=== PATIENT | male | born 1955 | race American Indian/Alaskan Native ===

== ENCOUNTER 2016-06-22 18:08 | Inpatient (IN) | payer OTHER ==
--- NOTE | 2016-06-22 18:43 | Emergency Department Report ---
Chief Complaint: Dyspnea/Respdistress Stated Complaint: DIABETIC/WEAKNESS Time Seen by Provider: 06/22/16 18:38 - HPI History of Present Illness: 60-year-old male comes in for shortness of breath weakness nausea decreased appetite. 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 Patient reports that he is has not taken off his medications such as his insulin. He says his insulin is outdated. He does have his Keppra and his metformin with him. He has not been taking his xarelto. - Exam Vital Signs: Vital Signs 06/22/16 18:22 Temperature 97.7 F Pulse Rate 147 H Respiratory 22 Rate Blood Pressure 132/95 O2 Sat by Pulse 97 Oximetry Physical Exam: Patient's alert talkative full sentences. He is very cachectic muscle wasting temporal wasting smells of ketones. Cardiovascular tachycardic. Respiratory not able to appreciate. MSE screening note: Focused history and physical exam performed. Due to findings the following was ordered: Patient's been evaluated. We ordered hyperglycemic protocol as well as a lactic acid PTT PT. informed Dr. Jensen and Angel the charge nurse patient's condition. ED Disposition for MSE Condition: Stable
[2016-06-22] MEDS ORDERED: NACL 0.9% 1000 ML IV ONE (19:00)
[2016-06-22 19:33] LABS: Bilirubin,Urine NEG (Negative); Blood,Urine NEG (Negative); Ketones,Urine 80 mg/dL (Negative); Leukocyte Esterase,Urine NEG (Negative); Nitrite,Urine NEG (Negative); Protein,Urine <15 mg/dL mg/dL (Negative); Urobilinogen,Urine < 2.0 mg/dL (<2.0); WBC,Urine < 1.0 /HPF (0.0-6.0)
[2016-06-22 19:34] LABS: Basophils % (Auto) 0.3 % (0.0-1.8); Eosinophils % (Auto) 0.5 % (0.0-4.3); Hematocrit 44.8 % (35.5-45.6); Hemoglobin 14.7 gm/dl (11.8-15.2); Mean Corpuscular HGB Conc 33 % (32-34); Mean Corpuscular Hemoglobin 28 pg (28-32); Mean Corpuscular Volume 85 fl (84-94); Platelet Count 289 K/mm3 (140-440); Red Cell Distribution Width 12.7 % (13.2-15.2); White Blood Count 5.5 K/mm3 (4.5-11.0)
[2016-06-22 19:49] LABS: INR 1.03 (0.87-1.13)
[2016-06-22 19:50] LABS: Partial Thromboplastin Time 24.6 Sec. (24.2-36.6)
[2016-06-22 19:57] LABS: Anion Gap 34 mmol/L; Blood Urea Nitrogen 19 mg/dL (9-20); Calcium 9.8 mg/dL (8.4-10.2); Carbon Dioxide 14 mmol/L (22-30); Glucose 444 mg/dL (75-100); Potassium 5.5 mmol/L (3.6-5.0); Sodium 134 mmol/L (137-145)
[2016-06-22 20:00] LABS: B-Hydroxybutyrate 81.5 mg/dL (0.2-2.8)
--- NOTE | 2016-06-22 20:07 | Emergency Department Report ---
HPI - General Chief Complaint: Dyspnea/Respdistress Time Seen by Provider: 06/22/16 18:38 - HPI HPI: This is a 60-year-old Afro-[place] male who presents to the emergency department by EMS from home with the complaints of a 3 day history of shortness of breath, palpitations, decreased appetite, increased thirst and increased urination. He has had some general weakness the past 3 weeks. Patient has a history of insulin and pill dependent diabetes and says he has been compliant with his medication. He also says that he has a mass on his brain that he is unsure whether it is cancerous or not. He has a history of seizures and previous stroke as well as hypertension. Patient says that he is usually on Xarelto but has been out of it for the past 2-3 months. He does not have a primary care doctor. He is an occasional tobacco smoker. Denies any illicit drug use. No recent travel or sick contacts at home. ED Past Medical Hx - Medications Home Medications: Home Medications Medication Instructions Recorded Confirmed Last Taken Type Insulin Aspart [NovoLOG Flexpen] 8 units SQ TID 06/22/16 06/22/16 1 Day Ago History Insulin Detemir [Levemir VIAL] 16 unit SQ QHS 06/22/16 06/22/16 1 Day Ago History Metformin HCl [Metformin HCl ER] 2 tab PO BID 06/22/16 06/22/16 1 Day Ago History Rivaroxaban [Xarelto] 20 mg PO QDAY 06/22/16 06/22/16 2 Months Ago History levETIRAcetam [Keppra TAB] 250 mg PO TID 06/22/16 06/22/16 1 Day Ago History ED Review of Systems ROS: Stated complaint: DIABETIC/WEAKNESS Other details as noted in HPI Comment: All other systems reviewed and negative Constitutional: weakness. denies: fever Eyes: denies: eye pain, eye discharge, vision change ENT: denies: ear pain, throat pain Respiratory: shortness of breath. denies: cough Cardiovascular: palpitations. denies: chest pain Gastrointestinal: denies: abdominal pain, nausea, diarrhea Genitourinary: denies: urgency, dysuria Musculoskeletal: denies: back pain, joint swelling, arthralgia Skin: denies: rash, lesions Neurological: weakness. denies: headache, numbness, paresthesias Physical Exam - Physical Exam Vital Signs: Vital Signs 06/22/16 06/22/16 18:22 19:04 Temperature 97.7 F Pulse Rate 147 H 127 H Respiratory 22 22 Rate Blood Pressure 132/95 Blood Pressure 169/99 [Left] O2 Sat by Pulse 97 99 Oximetry Physical Exam: GENERAL: The patient is well-developed well-nourished. HEENT: Normocephalic. Atraumatic. Extraocular motions are intact. Patient has moist mucous membranes. Pupils equal reactive to light bilaterally. NECK: Supple. Trachea is midline. CHEST/LUNGS: Clear to auscultation. There is no respiratory distress noted. HEART/CARDIOVASCULAR: Regular. There is mild to moderate tachycardia. There is no gallop rub or murmur. ABDOMEN: Abdomen is soft, nontender. Patient has normal bowel sounds. There is no abdominal distention. SKIN: There is no rash. There is no edema. There is no diaphoresis. NEURO: The patient is awake, alert, and oriented. The patient is cooperative. The patient has no focal neurologic deficits. The patient has normal speech. MUSCULOSKELETAL: There is no tenderness or deformity. There is no limitation range of motion. There is no evidence of acute injury. ED Course Vital Signs 06/22/16 06/22/16 18:22 19:04 Temperature 97.7 F Pulse Rate 147 H 127 H Respiratory 22 22 Rate Blood Pressure 132/95 Blood Pressure 169/99 [Left] O2 Sat by Pulse 97 99 Oximetry ED Medical Decision Making - Lab Data Result diagrams: 06/22/16 19:22 06/22/16 19:22 - EKG Data -: EKG Interpreted by Mi EKG shows normal: sinus rhythm, axis, intervals (prolong QTC), QRS complexes ( LVH), ST-T waves (nonspecific ST-T changes) Rate: tachycardia (139 bpm) - EKG Data When compared to previous EKG there are: previous EKG unavailable Interpretation: other (sinus tachycardia, prolonged QTC, nonspecific ST-T changes) - Radiology Data Radiology results: image reviewed interpreted by me: Chest x-ray shows hyperinflation of lungs and some signs of interstitial lung disease but no obvious pneumonia, pleural effusion or any pneumothorax. - Medical Decision Making 60-year-old male presents to the emergency department with some complaints of shortness of breath, increased thirst, increased urination and known uncontrolled diabetes. Patient's blood sugar was about 400 but he still appears to be in DKA with a venous pH that shows acidosis, 80 ketones in the serum, and elevated anion gap. Started on insulin drip and given IV fluid resuscitation and the patient will be admitted to the hospital for further evaluation and treatment. Accepted for admission by the hospitalist, Dr Domingo. - Differential Diagnosis DKA, HHNK, medication noncompliance, sepsis Critical Care Time: No Critical care attestation.: If time is entered above; I have spent that time in minutes in the direct care of this critically ill patient, excluding procedure time. ED Disposition Clinical Impression: Shortness of breath, Polydipsia, Dehydration Diabetic ketoacidosis Qualifiers: Diabetes mellitus type: type 1 Diabetes mellitus complication detail: without coma Qualified Code(s): E10.10 - Type 1 diabetes mellitus with ketoacidosis without coma Hypertension Qualifiers: Hypertension type: essential hypertension Qualified Code(s): I10 - Essential ( primary) hypertension Disposition: OP ADMITTED IP TO THIS HOSP Is pt being admited?: Yes Condition: Stable Instructions: Diabetic Ketoacidosis (ED), Hypertension (ED) Time of Disposition: 22:28
[2016-06-22] MEDS ORDERED: D50W (25GM) IV PRN (20:43)
[2016-06-22] MEDS ORDERED: NovoLIN R 100 UNITS in NACL 0.9% 99 ML IV SCH (21:00)
[2016-06-22] MEDS ORDERED: NACL 0.9% 1000 ML 1,000 ML ONE (21:13)
[2016-06-22] MEDS ORDERED: NACL 0.9% 1000 ML 1,000 ML IV ONE (21:33)
[2016-06-22] MEDS ORDERED: LOPRESSOR PO ONE (21:54)
[2016-06-22 22:04] LABS: BUN/Creatinine Ratio 18.88; Blood Urea Nitrogen 17 mg/dL (9-20); Calcium 10.1 mg/dL (8.4-10.2); Carbon Dioxide 16 mmol/L (22-30); Chloride 96.7 mmol/L (98-107); Glucose 356 mg/dL (75-100); Magnesium 1.5 mg/dL (1.7-2.3); Phosphorous 4.3 mg/dL (2.5-4.5); Sodium 135 mmol/L (137-145)
[2016-06-22 22:25] LABS: Anion Gap 28 mmol/L
[2016-06-22] MEDS ORDERED: D5/0.45NS 1,000 ML IV ONE (22:57)
[2016-06-22] MEDS ORDERED: NACL 0.9% 1000 ML 1,000 ML IV SCH (23:00)
[2016-06-22] MEDS ORDERED: D5/0.45NS 1,000 ML IV SCH (23:00)
[2016-06-22] MEDS ORDERED: D5W/0.45% NACL/KCL 20 MEQ 1,000 ML IV SCH (23:00)
--- NOTE | 2016-06-22 23:17 | Cat Scan Report ---
FINAL REPORT PROCEDURE: CT HEAD/BRAIN WO CON TECHNIQUE: Computerized tomography of the head was performed without contrast material. HISTORY: h/o brain mass, frequent BHARDWAJ COMPARISON: No prior studies are available for comparison. FINDINGS: Skull and scalp: Normal. Paranasal sinuses: Normal. Ventricles and subarachnoid spaces: Normal. Cerebrum: There is no evidence of acute intracranial hemorrhage, hematoma or infarction. There is an area of encephalomalacia in the posterior right parietal lobe consistent with old trauma, previous mass or previous infarction in this region. No prior studies are available for review. Slight atrophy is noted.. Cerebellum and brainstem: No evidence of hemorrhage, acute infarction or mass. Vasculature: Normal. Comments: None. IMPRESSION: There is no evidence of acute intracranial hemorrhage, hematoma or infarction. Moderate area of encephalomalacia in the posterior right parietal lobe consistent with old trauma, previous mass or infarction in this region.
--- NOTE | 2016-06-22 23:42 | History and Physical Report ---
History of Present Illness Date of examination: 06/22/16 Date of admission: 06/22/16 22:00 History of present illness: 60-year-old man with a history of diabetes, A. fib, history of brain mass, seizure, hypertension comes emergency room complaining of polyuria, polydipsia and swelling ketones on his breath. Also complaining of generalized weakness, no nausea or vomiting. He is taking his diabetic medication but he 10 months ago, he ran out of his XARELTO Patient denies chest pain, palpitation, shortness of breath, cough, abdominal pain, hematochezia, dysuria, frequency, focal weakness, dysarthria, fever chills , hot or cold intolerance, easy bruisability, or rash or bleeding from mucosal membrane, rhinorrhea, epistaxis, earache, tinnitus, blurry vision, eye discharge , anxiety, depression. Other review of systems negative PAST SURGICAL HISTORY: None SOCIAL HISTORY: Smoke a pack a week, no alcohol or drugs FAMILY HISTORY: Diabetes Medications and Allergies Allergies Allergy/AdvReac Type Severity Reaction Status Date / Time No Known Allergies Allergy Verified 06/22/16 20:48 Home Medications Medication Instructions Recorded Confirmed Last Taken Type Insulin Aspart [NovoLOG Flexpen] 8 units SQ TID 06/22/16 06/22/16 1 Day Ago History Insulin Detemir [Levemir VIAL] 16 unit SQ QHS 06/22/16 06/22/16 1 Day Ago History Metformin HCl [Metformin HCl ER] 2 tab PO BID 06/22/16 06/22/16 1 Day Ago History Rivaroxaban [Xarelto] 20 mg PO QDAY 06/22/16 06/22/16 2 Months Ago History levETIRAcetam [Keppra TAB] 250 mg PO TID 06/22/16 06/22/16 1 Day Ago History Active Meds: Active Medications Dextrose (D50w (25gm)) 0 ml IV PRN PRN PRN Reason: Hypoglycemia Insulin Human Regular 100 (units/ Sodium Chloride) 100 mls @ 4 mls/hr IV TITR ULISES; 4 UNITS/HR PRN Reason: Protocol Last Titration: 06/22/16 23:38 Dose: 0 units/hr Sodium Chloride (Nacl 0.9% 1000 Ml) 1,000 mls @ 150 mls/hr IV ONCE ONE Stop: 06/23/16 04:12 Last Admin: 06/22/16 21:25 Dose: 150 mls/hr Sodium Chloride (Nacl 0.9% 1000 Ml) 1,000 mls @ 150 mls/hr IV DIRECT ULISES Dextrose/Sodium Chloride (D5/0.45ns) 1,000 mls @ 125 mls/hr IV DIRECT ULISES Last Admin: 06/22/16 23:04 Dose: 125 mls/hr Exam - Physical Exam Narrative exam: Gen. appearance: Patient lying in bed, no apparent distress HEENT: Normocephalic, atraumatic, pupils equally round and reactive to light, extraocular movement intact, and no sclericterus,. No JVD or thyromegaly or nodule,neck supple, no carotid bruit ,mucous membranes moist, no exudate or erythema Heart: S1, S2, regular rate and rhythm Lungs: Clear to auscultation bilaterally, breathing comfortable Abdomen: Positive bowel sounds, nontender, nondistended, no organomegaly Extremity: No edema, cyanosis, clubbing Skin: No rash, nodules, warm, dry Neuro: Oriented 3, cranial nerves II-12 intact, speech is fluent, motor and sensory intact - Constitutional Vitals: Temp Pulse Resp BP Pulse Ox 97.7 F 131 H 18 133/86 99 06/22/16 18:22 06/22/16 22:18 06/22/16 19:40 06/22/16 22:18 06/22/16 19:40 Results - Labs CBC & Chem 7: 06/22/16 19:22 06/22/16 23:39 - Imaging and Cardiology EKG: image reviewed (READ BY ME) Chest x-ray: image reviewed (READ BY ME) Assessment and Plan DKA Headache with h/o brain mass AFib on xarelto Hypertension seizure Jose G to medicine Start insulin drip, IV fluids Monitor electrolytes,fingersticks Consult critical care Obtain CT head Continue appropriate outpatient medications start dvt prophalaxis with xarelto
[2016-06-23 00:12] LABS: Blood Urea Nitrogen 16 mg/dL (9-20); Calcium 9.9 mg/dL (8.4-10.2); Carbon Dioxide 18 mmol/L (22-30); Glucose 104 mg/dL (75-100); Potassium 4.2 mmol/L (3.6-5.0); Sodium 138 mmol/L (137-145)
[2016-06-23 00:14] LABS: Anion Gap 22 mmol/L
--- NOTE | 2016-06-23 00:44 | Admit Criteria Form ---
Admission Criteria Documentation: DIABETES: OBSERVATION CARE USE THIS FORM ONLY WHEN INPATIENT ADMISSION CRITERIA ARE NOT MET. (Place X for any and all applicable criteria): Placement for observation care may be appropriate for a patient with ANY ONE of the following(1)(2)(3): [X]I. Diabetic ketoacidosis [A] that cannot be corrected in the outpatient setting []II. Signs or symptoms secondary to hyperglycemia not corrected by outpatient treatment, including ANY ONE of the following: []a) Altered mental status []b) Significant hypovolemia or dehydration []c) Nausea or vomiting []d) Electrolyte abnormality []e) Plasma glucose greater than 600 mg/dL (33.3 mmol/L) []f) Serum osmolality greater than 320 mOsm/kg (mmol/kg) []III. Seizure, focal neurologic deficit, or other manifestations of altered sensorium due to suspected or documented hypoglycemia and ANY ONE of the following (4)(5): []a) Initial treatment has not resulted in rapid recovery. []b) Recurrence possible due to mechanism of hypoglycemia (eg, use of long-acting oral hypoglycemics) []IV. Gestational diabetes and rapid initiation of metabolic control needed to improve maternal and outcome (6) []V. A child whose situation includes ANY ONE of the following: []a) Clinical response to outpatient therapy uncertain []b) Outpatient supervision by parents or caregivers uncertain []. Other observation care needs (See General Criteria: Observation Care) The original [facility] [employer] content created by [employer] has been revised. The portions of the content which have been revised are identified through the use of italic text, and [facility] has neither reviewed nor approved the modified material. All other unmodified content is copyright [facility]. Please see references footnoted in the original [facility] [employer] edition 2015 Admission Criteria Met: Yes
[2016-06-23] MEDS ORDERED: TYLENOL PO PRN (02:00)
[2016-06-23] MEDS ORDERED: DULCOLAX PR PRN (02:00)
[2016-06-23] MEDS ORDERED: MILK OF MAGNESIA PO PRN (02:00)
[2016-06-23] MEDS ORDERED: D5W/0.45% NACL/KCL 20 MEQ 1,000 ML IV SCH (02:00)
[2016-06-23] MEDS ORDERED: D50W (25GM) IV PRN (02:00)
[2016-06-23] MEDS ORDERED: NovoLIN R 100 UNITS in NACL 0.9% 99 ML IV SCH (02:00)
[2016-06-23] MEDS ORDERED: ALUM-MAG HYDROX-SIMETH 200-200-20MG/5ML PO PRN (02:00)
[2016-06-23 03:45] LABS: Anion Gap 23 mmol/L; BUN/Creatinine Ratio 21.42; Blood Urea Nitrogen 15 mg/dL (9-20); Calcium 9.7 mg/dL (8.4-10.2); Carbon Dioxide 19 mmol/L (22-30); Chloride 100.4 mmol/L (98-107); Glucose 152 mg/dL (75-100); Magnesium 1.3 mg/dL (1.7-2.3); Potassium 3.8 mmol/L (3.6-5.0); Sodium 139 mmol/L (137-145)
[2016-06-23] MEDS ORDERED: NON-FORMULARY (Levetiracetam [Keppra Tab] 250 MG) PO SCH (08:00)
[2016-06-23 08:11] LABS: Anion Gap 17 mmol/L; BUN/Creatinine Ratio 17.14; Blood Urea Nitrogen 12 mg/dL (9-20); Calcium 9.2 mg/dL (8.4-10.2); Carbon Dioxide 21 mmol/L (22-30); Chloride 104.4 mmol/L (98-107); Glucose 119 mg/dL (75-100); Potassium 3.8 mmol/L (3.6-5.0); Sodium 139 mmol/L (137-145)
[2016-06-23] MEDS: KEPPRA PO SCH ×3 (08:13→21:20)
--- NOTE | 2016-06-23 08:14 | Progress Note ---
Assessment and Plan Assessment and plan: DKA, likely due to noncompliance Headache with h/o brain mass, improved AFib on xarelto Hypertension, benign essential History of seizure Severe protein calorie malnutrition Plan: d/c insulin drip, cont IV fluids with NS start on ADA diet, subcutaneous insulin Monitor electrolytes, fingersticks BG Continue appropriate outpatient medications cont with xarelto for anticoagulation No additional DVT prophylaxis admitted as patient on Xarelto CT head showed no new lesion or mass Nutrition consult for dietary recommendation History Interval history: Patient seen and examined. Medical records and medication list reviewed. No acute event overnight noted by the RN. Patient denies any chest pain or difficulty breathing. Patient feels hungry and wants to eat Denies any headache this morning Discussed plan of care at bedside with patient. Hospitalist Physical - Physical exam Narrative exam: GENERAL: Elderly malnourished -Honduran female lying on bed appeared to be in no discomfort. HEENT: Normocephalic. Atraumatic. No conjunctival congestion or icterus. Patient has moist mucous membranes. NECK: Supple. Trachea midline. CHEST/LUNGS: Clear to auscultated bilaterally, breathing nonlabored. No wheezes crackles or rhonchi. HEART/CARDIOVASCULAR: Regular in rate and rhythm. S1 and S2 positive. ABDOMEN: Abdomen is soft, nontender. Patient has normal bowel sounds. SKIN: There is no rash. Warm and dry. NEURO: No focal motor deficit. Follows command. MUSCULOSKELETAL: No joint effusion or tenderness. EXTRIMITY: No edema, no cyanosis or clubbing. PSYCH: Cooperative. - Constitutional Vitals: Temp Pulse Resp BP Pulse Ox 98.1 F 104 H 14 116/68 97 06/23/16 04:00 06/23/16 07:00 06/23/16 07:00 06/23/16 07:00 06/23/16 07:00 Results - Labs CBC & Chem 7: 06/22/16 19:22 06/23/16 23:01 Labs: Laboratory Last Values WBC 5.5 K/mm3 (4.5-11.0) 06/22/16 19:22 RBC 5.30 M/mm3 (3.65-5.03) H 06/22/16 19:22 Hgb 14.7 gm/dl (11.8-15.2) 06/22/16 19:22 Hct 44.8 % (35.5-45.6) 06/22/16 19:22 MCV 85 fl (84-94) 06/22/16 19: MCH 28 pg (28-32) 06/22/16 19: MCHC 33 % (32-34) 06/22/16 19: RDW 12.7 % (13.2-15.2) L 06/22/16 19: Plt Count 289 K/mm3 (140-440) 06/22/16 19:22 Lymph % (Auto) 25.7 % (13.4-35.0) 06/22/16 19: [place] % (Auto) 9.8 % (0.0-7.3) H 06/22/16 19: Eos % (Auto) 0.5 % (0.0-4.3) 06/22/16 19: Baso % (Auto) 0.3 % (0.0-1.8) 06/22/16 19: Lymph # 1.4 K/mm3 (1.2-5.4) 06/22/16 19: [place] # 0.5 K/mm3 (0.0-0.8) 06/22/16 19: Eos # 0.0 K/mm3 (0.0-0.4) 06/22/16 19: Baso # 0.0 K/mm3 (0.0-0.1) 06/22/16 19: Seg Neutrophils % 63.7 % (40.0-70.0) 06/22/16 19: Seg Neutrophils # 3.5 K/mm3 (1.8-7.7) 06/22/16 19: PT 13.4 Sec. (12.2-14.9) 06/22/16 19: INR 1.03 (0.87-1.13) 06/22/16 19: APTT 24.6 Sec. (24.2-36.6) 06/22/16 19: D-Dimer 170.28 ng/mlDDU (0-234) 06/22/16 20:18 VBG pH 7.189 (7.320-7.420) L* 06/22/16 19: Sodium 139 mmol/L (137-145) 06/23/16 07:39 Potassium 3.8 mmol/L (3.6-5.0) 06/23/16 07:39 Chloride 104.4 mmol/L (98-107) 06/23/16 07:39 Carbon Dioxide 21 mmol/L (22-30) L 06/23/16 07:39 Anion Gap 17 mmol/L 06/23/16 07:39 BUN 12 mg/dL (9-20) 06/23/16 07:39 Creatinine 0.7 mg/dL (0.8-1.5) L 06/23/16 07:39 Estimated GFR > 60 ml/min 06/23/16 07:39 BUN/Creatinine Ratio 17.14 % 06/23/16 07:39 Glucose 119 mg/dL (75-100) H 06/23/16 07:39 POC Glucose 162 (70-105) H 06/23/16 05:59 Lactic Acid 1.8 mmol/L (0.7-2.0) 06/22/16 19:22 Calcium 9.2 mg/dL (8.4-10.2) 06/23/16 07:39 Phosphorus 3.0 mg/dL (2.5-4.5) D 06/23/16 02:56 Magnesium 1.3 mg/dL (1.7-2.3) L 06/23/16 02:56 Urine Color Straw (Yellow) 06/22/16 19:01 Urine Turbidity Clear (Clear) 06/22/16 19:01 Urine pH 5.0 (5.0-7.0) 06/22/16 19:01 Ur Specific [place] 1.024 (1.003-1.030) 06/22/16 19:01 Urine Protein <15 mg/dl mg/dL (Negative) 06/22/16 19:01 Urine Glucose (UA) >=500 mg/dL (Negative) 06/22/16 19:01 Urine Ketones 80 mg/dL (Negative) 06/22/16 19:01 Urine Blood Neg (Negative) 06/22/16 19:01 Urine Nitrite Neg (Negative) 06/22/16 19:01 Urine Bilirubin Neg (Negative) 06/22/16 19:01 Urine Urobilinogen < 2.0 mg/dL (<2.0) 06/22/16 19:01 Ur Leukocyte Esterase Neg (Negative) 06/22/16 19:01 Urine WBC (Auto) < 1.0 /HPF (0.0-6.0) 06/22/16 19:01 Urine RBC (Auto) 3.0 /HPF (0.0-6.0) 06/22/16 19:01 U Epithel Cells (Auto) < 1.0 /HPF (0-13.0) 06/22/16 19:01 Ketones 81.5 mg/dL (0.2-2.8) H 06/22/16 19:22 - Imaging and Cardiology CT scan - chest: report reviewed (posterior right parietal lobe encephalomalacia consistent with old trauma versus mass versus infection)
[2016-06-23] MEDS ORDERED: MAGNESIUM SULFATE 2GM/50ML 50 ML IV ONE (09:00)
[2016-06-23] MEDS: NOVOLOG SUB-Q SCH ×3 (09:48→17:45)
[2016-06-23] MEDS: XARELTO PO SCH (09:50)
[2016-06-23] MEDS: LEVEMIR SUB-Q SCH (09:55)
--- NOTE | 2016-06-23 10:11 | XRay Report ---
PORTABLE CHEST: INDICATION: Shortness of breath. COMPARISON: None similar at this institution. FINDINGS: Portable, frontal chest radiographs, 2 images, demonstrate normal heart size and hilar contours. Right paratracheal soft tissue fullness with slight leftward tracheal deviation suspicious for a right thyroid mass. Slight aortic knob calcifications. Mild right upper lobe peripheral scarring. Otherwise, clear, well-expanded lungs without pleural effusions or CHF. EKG leads. Slight bony degenerative changes. CONCLUSION: No acute disease in the chest with possible mild right upper lobe scarring and right thyroid lobe fullness/mass, as described. Please also correlate clinically, with prior relevant imaging if available or on future exams, as appropriate. Thank you for the opportunity to participate in this patient's care.
[2016-06-23 10:34] LABS: Anion Gap 23 mmol/L; BUN/Creatinine Ratio 17.14; Blood Urea Nitrogen 12 mg/dL (9-20); Calcium 9.2 mg/dL (8.4-10.2); Carbon Dioxide 18 mmol/L (22-30); Chloride 101.9 mmol/L (98-107); Glucose 308 mg/dL (75-100); Potassium 4.1 mmol/L (3.6-5.0); Sodium 139 mmol/L (137-145)
[2016-06-23] MEDS ORDERED: FLUARIX QUAD 2016-2017(36 MOS+) IM ONE (12:00)
[2016-06-23] MEDS ORDERED: PNEUMOVAX 23 IM ONE (12:00)
--- NOTE | 2016-06-23 12:18 | Consultation ---
History of Present Illness Consult date: 06/23/16 Requesting physician: SIS GONZALEZ History of present illness: PULMONARY/CCM CONSULT NOTE (Full dictation # [id number]) Please see dictated notes for full details Medications and Allergies Allergies Allergy/AdvReac Type Severity Reaction Status Date / Time No Known Allergies Allergy Verified 06/22/16 20:48 Home Medications Medication Instructions Recorded Confirmed Last Taken Type Insulin Aspart [NovoLOG Flexpen] 8 units SQ TID 06/22/16 06/22/16 1 Day Ago History Insulin Detemir [Levemir VIAL] 16 unit SQ QHS 06/22/16 06/22/16 1 Day Ago History Metformin HCl [Metformin HCl ER] 2 tab PO BID 06/22/16 06/22/16 1 Day Ago History Rivaroxaban [Xarelto] 20 mg PO QDAY 06/22/16 06/22/16 2 Months Ago History levETIRAcetam [Keppra TAB] 250 mg PO TID 06/22/16 06/22/16 1 Day Ago History Active Meds: Active Medications Acetaminophen (Tylenol) 650 mg PO Q6H PRN PRN Reason: Pain Al Hydrox/Mg Hydrox/Simethicone (Alum-Mag Hydrox-Simeth [phone]/5ml) 30 ml PO Q4H PRN PRN Reason: Indigestion Bisacodyl (Dulcolax) 10 mg [place] QDAY PRN PRN Reason: constipation unrelieved by MOM Dextrose (D50w (25gm)) 0 ml IV ONCE PRN PRN Reason: Hypoglycemia Sodium Chloride (Nacl 0.9% 1000 Ml) 1,000 mls @ 150 mls/hr IV DIRECT ULISES Last Admin: 06/23/16 02:07 Dose: 150 mls/hr Insulin Human Regular 100 (units/ Sodium Chloride) 100 mls @ 1 mls/hr IV TITR ULISES; 1 UNITS/HR PRN Reason: Protocol Potassium Chloride/Dextrose/Sod Cl (D5w/0.45% Nacl/Kcl 20 Meq) 1,000 mls @ 125 mls/hr IV DIRECT ULISES Last Admin: 06/23/16 06:47 Dose: 125 mls/hr Insulin Aspart (Novolog) 8 units SUB-Q AC ULISES Last Admin: 06/23/16 12:00 Dose: 8 units Insulin Detemir (Levemir) 10 units SUB-Q DAILY [facility] Last Admin: 06/23/16 09:55 Dose: 10 units Levetiracetam (Keppra) 250 mg PO TID [facility] Last Admin: 06/23/16 08:13 Dose: 250 mg Magnesium Hydroxide (Milk Of Magnesia) 30 ml PO Q4H PRN PRN Reason: Constipation Metformin HCl (Glucophage) 1,000 mg PO BIDDIAB [facility] Rivaroxaban (Xarelto) 20 mg PO QDAY [facility] PRN Reason: Protocol Last Admin: 06/23/16 09:50 Dose: 20 mg Physical Examination Vital signs: Vital Signs Temp Pulse Resp BP Pulse Ox 97.7 F 147 H 22 132/95 97 06/22/16 18:22 06/22/16 18:22 06/22/16 18:22 06/22/16 18:22 06/22/16 18:22 Results - Laboratory Findings CBC and BMP: 06/22/16 19:22 06/23/16 09:54 PT/INR, D-dimer PT 13.4 Sec. (12.2-14.9) 06/22/16 19:22 INR 1.03 (0.87-1.13) 06/22/16 19:22 D-Dimer 170.28 ng/mlDDU (0-234) 06/22/16 20:18 Abnormal lab findings: Abnormal Labs 06/22/16 06/22/16 06/23/16 22:22 23:39 01:04 Carbon Dioxide 18 L Creatinine Glucose 104 H POC Glucose 203 H 135 H Magnesium 06/23/16 06/23/16 06/23/16 01:58 02:56 03:00 Carbon Dioxide 19 L Creatinine 0.7 L Glucose 152 H POC Glucose 162 H 139 H Magnesium 1.3 L 06/23/16 06/23/16 06/23/16 05:22 05:59 07:39 Carbon Dioxide 21 L Creatinine 0.7 L Glucose 119 H POC Glucose 143 H 162 H Magnesium 06/23/16 06/23/16 08:06 09:54 Carbon Dioxide 18 L Creatinine 0.7 L Glucose 308 H POC Glucose 120 H Magnesium
[2016-06-23 13:21] LABS: Blood Urea Nitrogen 12 mg/dL (9-20); Carbon Dioxide 21 mmol/L (22-30); Chloride 104.1 mmol/L (98-107); Glucose 198 mg/dL (75-100); Potassium 3.7 mmol/L (3.6-5.0); Sodium 137 mmol/L (137-145)
[2016-06-23 13:24] LABS: Anion Gap 16 mmol/L
[2016-06-23] MEDS: PEPCID PO SCH (13:59)
[2016-06-23 14:51] LABS: Anion Gap 20 mmol/L; BUN/Creatinine Ratio 23.33; Blood Urea Nitrogen 14 mg/dL (9-20); Calcium 8.8 mg/dL (8.4-10.2); Carbon Dioxide 20 mmol/L (22-30); Chloride 103.2 mmol/L (98-107); Glucose 238 mg/dL (75-100); Potassium 4.5 mmol/L (3.6-5.0); Sodium 139 mmol/L (137-145)
[2016-06-23] MEDS: GLUCOPHAGE PO SCH (17:44)
[2016-06-23 21:12] LABS: Anion Gap 18 mmol/L; Blood Urea Nitrogen 14 mg/dL (9-20); Calcium 8.6 mg/dL (8.4-10.2); Carbon Dioxide 21 mmol/L (22-30); Chloride 99.6 mmol/L (98-107); Glucose 306 mg/dL (75-100); Sodium 134 mmol/L (137-145)
[2016-06-24 00:08] LABS: Anion Gap 16 mmol/L; BUN/Creatinine Ratio 21.66; Blood Urea Nitrogen 13 mg/dL (9-20); Calcium 8.7 mg/dL (8.4-10.2); Carbon Dioxide 22 mmol/L (22-30); Chloride 101.2 mmol/L (98-107); Glucose 304 mg/dL (75-100); Sodium 135 mmol/L (137-145)
--- NOTE | 2016-06-24 04:46 | Consultation ---
CONSULTING PHYSICIAN: Myrna Domingo MD REASON FOR CONSULTATION: Need for critical care admission, diabetic ketoacidosis. CHIEF COMPLAINT AND HISTORY OF PRESENT ILLNESS: The patient is a 60-year-old -[place] male with past medical history indeed significant amongst other things for a diagnosis of diabetes, who states that came into the Emergency Room complaining of a 3-day history of shortness of breath, palpitations, decreased appetite, polyuria, polydipsia. He admitted to using his medications at home including his insulin, but stated that the insulin he was using had . He gives a really complex history including a history of a mass in his brain and history of seizures. He came to the Emergency Room, was evaluated, was found to be in diabetic ketoacidosis and admitted for initial management of that problem. We were asked to evaluate for ICU admission. When I stopped by to see him, he was feeling better. He was being weaned off the IV insulin drip and again could not give me any specific details. He stated that he had a brain tumor diagnosis 2 years ago, but denied any new onset focal weakness. He denied any new onset seizures. He denied any new lumps, bumps, or swellings on his body. He gives about a 10+ pack year tobacco smoking history. States that he quit smoking some years back. Denied nausea, vomiting, or overt aspiration. That really is as much of the history of presentation as I have. PAST MEDICAL HISTORY: Diabetes, history of atrial fibrillation, history of a brain mass, history of seizures, history of hypertension. PAST SURGICAL HISTORY: Denies any. MEDICATIONS: He was on at the time I stopped by to see him, according to the medication administration record included the following: He was on Tylenol 650 mg p.o. q. 6 hours p.r.n. pain. He was on Dulcolax 10 mg per rectum daily p.r.n. He was on the insulin, IV insulin therapy. He was just been scheduled for Levemir insulin 10 units subcutaneous daily. Keppra 250 mg p.o. t.i.d., metformin 1 gram p.o. b.i.d., p.r.n. milk of magnesia, Xarelto 20 mg p.o. daily, and he had been on sodium chloride at 150 mL per hour. ALLERGIES: No known drug allergies. DIET: He states he has lost about 40 pounds in the past year unintentionally. FAMILY AND SOCIAL HISTORY: Lives in the community, about a [id number] tobacco smoking history. Denies alcohol or illicit drug use or abuse. There is a family history of diabetes. REVIEW OF SYSTEMS: No loss of consciousness. No new onset seizures. No new onset focal weakness. No gross hematochezia or melena. No gross hematuria or dysuria. No hematemesis. No hemoptysis. He had palpitations prior to coming to the hospital. No acute chest pain. Complete review of systems obtained. Pertinent positives and/or negatives as in body of history above, otherwise they are noncontributory. PHYSICAL EXAMINATION: VITAL SIGNS: At presentation in the Emergency Room, he was afebrile, temperature 97.7, pulse was 147, respiratory rate was 22, blood pressure was 132/95, oxygen sats were 97%, inspired oxygen concentration was not recorded. HEENT: Pupils are equal, round 3 mm, reactive to light. Extraocular muscle movements appeared intact. Grossly, no palpable lymph nodes in the supraclavicular or submandibular lymph node chains. He is normocephalic, no lumps or bumps on the skull. LUNGS: Auscultation of both lung carrasquillo unremarkable. Lungs are clear bilaterally. HEART: Heart sounds 1 and 2 are heard. At the time of my evaluation, regular rate and rhythm. ABDOMEN: Soft, flat. Bowel sounds are positive. Nontender. EXTREMITIES: Without overt digital clubbing, cyanosis, or pedal edema. NEUROLOGIC: The exam was grossly nonfocal. LABORATORY DATA: For my review are as follows: White cell count 5500, hemoglobin 14.7, hematocrit 44.8, platelets 289. INR 1.03. D-dimer within normal limits. Venous blood gas showed a pH of 7.19. Serum sodium was 134, potassium 5.5, chloride 92, bicarbonate 14, BUN 19, creatinine 1.0, glucose was 444. Lactic acid level was within normal limits. Urinalysis positive for urine ketones, negative for nitrites and leukocyte esterase, ketones were high at 81.5. Radiographic studies have been reviewed. I am pulling up the chest x-ray now. The CT of the brain mentions no evidence of intracranial hemorrhage, hematoma, moderate area of encephalomalacia in the posterior right parietal lobe consistent with old trauma, previous mass or infarction in this region, but no obvious evidence of a surgical intervention. Chest x-ray was reported as no acute disease. ASSESSMENT AND PLAN: We have a middle-aged gentleman in with diabetic ketoacidosis secondary to either noncompliance or medication therapy better than the gap has closed. He is stable enough to be transferred out of the Intensive Care Unit and that will be the plan. CT scan of the head does not show any acute process. Chest x-ray does not show any acute process. Hopefully, he can be started on his medications and discharged home with instructions to follow up with his physicians at the [facility] as soon as possible or as previously scheduled. I will add him on GI prophylaxis. He is on Xarelto. JOB# [id number] GARETH/ARABELLA
[2016-06-24] MEDS: GLUCOPHAGE PO SCH (08:31)
[2016-06-24] MEDS: NOVOLOG SUB-Q SCH ×2 (08:33→14:08)
[2016-06-24] MEDS: PEPCID PO SCH (09:36)
[2016-06-24] MEDS: KEPPRA PO SCH ×2 (09:36→14:09)
--- NOTE | 2016-06-24 10:33 | Discharge Summary ---
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 Hospitalization Condition: Stable Hospital course: Discharge diagnosis: DKA, likely due to noncompliance, resolved Headache with h/o brain mass, improved, no new lesion on CT scan AFib on xarelto Hypertension, benign essential History of seizure Severe protein calorie malnutrition Disposition: DISCHARGED TO HOME OR SELFCARE Time spent for discharge: 32 minutes Core Measure Documentation - Palliative Care Palliative Care/ Comfort Measures: Not Applicable - Core Measures Any of the following diagnoses?: none Exam - Physical Exam Narrative exam: GENERAL: Elderly malnourished -[place] female lying on bed appeared to be in no discomfort. HEENT: Normocephalic. Atraumatic. No conjunctival congestion or icterus. Patient has moist mucous membranes. NECK: Supple. Trachea midline. CHEST/LUNGS: Clear to auscultated bilaterally, breathing nonlabored. No wheezes crackles or rhonchi. HEART/CARDIOVASCULAR: Regular in rate and rhythm. S1 and S2 positive. ABDOMEN: Abdomen is soft, nontender. Patient has normal bowel sounds. SKIN: There is no rash. Warm and dry. NEURO: No focal motor deficit. Follows command. MUSCULOSKELETAL: No joint effusion or tenderness. EXTRIMITY: No edema, no cyanosis or clubbing. PSYCH: Cooperative. - Constitutional Vitals: Temp Pulse Resp BP Pulse Ox 98.5 F 88 18 130/72 99 06/24/16 08:00 06/24/16 08:00 06/24/16 08:00 06/24/16 08:00 06/24/16 08:00 Plan Activity: advance as tolerated Weight Bearing Status: Non-Weight Bearing Diet: diabetic Follow up with: PRIMARY CARE, [Primary Care Provider] - 3-5 Days Prescriptions: levETIRAcetam [Keppra TAB] 500 mg PO BID #60 tablet Metformin HCl [Metformin HCl ER] 2 tab PO BID #60 [id number] Insulin Aspart [NovoLOG Flexpen] 12 units SQ TID 30 Days Rivaroxaban [Xarelto] 20 mg PO QDAY #30 tablet
--- NOTE | 2016-06-24 11:57 | Progress Note ---
Subjective Date of service: 06/24/16 Interval history: seen and examined at bedside; 24hour events reviewed; nursing and respiratory care staff consulted; no adverse overnight events reported to me; Objective Vital Signs - 12hr 06/24/16 08:00 Temperature 98.5 F Pulse Rate [ 88 From Monitor] Respiratory 18 Rate Blood Pressure 130/72 [Left Arm] O2 Sat by Pulse 99 Oximetry CBC and BMP: 06/22/16 19:22 06/23/16 23:01 ABG, PT/INR, D-dimer: PT/INR, D-dimer PT 13.4 Sec. (12.2-14.9) 06/22/16 19:22 INR 1.03 (0.87-1.13) 06/22/16 19:22 D-Dimer 170.28 ng/mlDDU (0-234) 06/22/16 20:18 Abnormal lab findings: Abnormal Labs 06/22/16 06/22/16 06/23/16 22:22 23:39 01:04 Sodium Carbon Dioxide 18 L Creatinine Glucose 104 H POC Glucose 203 H 135 H Magnesium 06/23/16 06/23/16 06/23/16 01:58 02:56 03:00 Sodium Carbon Dioxide 19 L Creatinine 0.7 L Glucose 152 H POC Glucose 162 H 139 H Magnesium 1.3 L 06/23/16 06/23/16 06/23/16 05:22 05:59 07:39 Sodium Carbon Dioxide 21 L Creatinine 0.7 L Glucose 119 H POC Glucose 143 H 162 H Magnesium 06/23/16 06/23/16 06/23/16 08:06 09:54 11:17 Sodium Carbon Dioxide 18 L Creatinine 0.7 L Glucose 308 H POC Glucose 120 H 208 H Magnesium 06/23/16 06/23/16 06/23/16 12:25 14:19 16:51 Sodium Carbon Dioxide 21 L 20 L Creatinine 0.6 L 0.6 L Glucose 198 H 238 H POC Glucose 245 H Magnesium 06/23/16 06/23/16 06/24/16 20:35 23:01 06:40 Sodium 134 L 135 L Carbon Dioxide 21 L Creatinine 0.6 L Glucose 306 H 304 H POC Glucose 286 H Magnesium
[2016-06-24] MEDS: LEVEMIR SUB-Q SCH (13:46)
[2016-06-24 13:52] VITALS: BP 134/88
[2016-06-24] MEDS: XARELTO PO SCH (14:38)
== END 2016-06-24 14:57 | disposition home or self-care (01) | DRG 637 ==
LOC: ED 18:08 → CC1 22:00 → 3A 06-23 12:29
PROVIDERS: ADMIT Internal Medicine; ATTEND Internal Medicine
DX: E10.10 Type 1 diabetes mellitus with ketoacidosis without coma (principal); E43 Unspecified severe protein-calorie malnutrition; Z68.1 Body mass index [BMI] 19.9 or less, adult; I10 Essential (primary) hypertension; G40.909 Epilepsy, unspecified, not intractable, without status epilepticus; F17.200 Nicotine dependence, unspecified, uncomplicated; I48.91 Unspecified atrial fibrillation; R51 Headache; Z79.4 Long term (current) use of insulin; Z86.73 Personal history of transient ischemic attack (TIA), and cerebral infarction without residual deficits; Z83.3 Family history of diabetes mellitus; Z91.19 Patient's noncompliance with other medical treatment and regimen; Z79.01 Long term (current) use of anticoagulants; Z86.011 Personal history of benign neoplasm of the brain; Z79.84 Long term (current) use of oral hypoglycemic drugs
CPT/HCPCS: 36415; 70450; 71010; 80048; 81001; 82010; 82140; 82805; 82962; 83735; 84100; 85025; 85379; 85610; 85730; 90686; 90732; 93005; 93010; 96360; 96361; J1815; J1818; J3475; J7030

== ENCOUNTER 2016-06-28 12:14 | Emergency (ER) | payer SELFPAY ==
[2016-06-28 12:41] VITALS: BP 169/91
--- NOTE | 2016-06-28 12:57 | Emergency Department Report ---
Chief Complaint: Chest Pain Stated Complaint: CHEST PAIN Time Seen by Provider: 06/28/16 12:48 - HPI History of Present Illness: 61-year-old male presents today with chest pain 3 days. Denies history of similar symptoms. Denies fever, chills, nausea, vomiting, shortness of breath, abdominal pain. - ROS Review of Systems: Per HPI - Exam Vital Signs: Vital Signs 06/28/16 12:33 Temperature 97.9 F Pulse Rate 115 H Respiratory 18 Rate Blood Pressure 169/91 O2 Sat by Pulse 99 Oximetry Physical Exam: General: 61-year-old male in no acute distress. Well-developed, well-nourished. CV: Tachycardic. Regular rhythm. Lungs: Clear to auscultation bilaterally. MSE screening note: Focused history and physical exam performed. Due to findings the following was ordered: ED Disposition for MSE Condition: Stable
[2016-06-28 13:17] LABS: Urine Drugs of Abuse Note Disclamer
[2016-06-28 13:31] LABS: Bilirubin,Urine NEG (Negative); Blood,Urine NEG (Negative); Ketones,Urine NEG (Negative); Leukocyte Esterase,Urine NEG (Negative); Nitrite,Urine NEG (Negative); Protein,Urine <15 mg/dL mg/dL (Negative); Urobilinogen,Urine < 2.0 mg/dL (<2.0); WBC,Urine < 1.0 /HPF (0.0-6.0)
[2016-06-28 13:46] LABS: Basophils % (Auto) 0.3 % (0.0-1.8); Eosinophils % (Auto) 1.1 % (0.0-4.3); Hematocrit 37.4 % (35.5-45.6); Hemoglobin 12.6 gm/dl (11.8-15.2); Mean Corpuscular HGB Conc 34 % (32-34); Mean Corpuscular Hemoglobin 28 pg (28-32); Mean Corpuscular Volume 83 fl (84-94); Platelet Count 260 K/mm3 (140-440); Red Cell Distribution Width 12.8 % (13.2-15.2)
--- NOTE | 2016-06-28 13:51 | XRay Report ---
CHEST 2 VIEWS INDICATION: Chest pain. COMPARISON: 06/22/2016 FINDINGS: PA and lateral chest radiographs again demonstrate normal cardiomediastinal silhouette, slight aortic knob calcifications, mild right upper lobe peripheral scarring and right paratracheal soft tissue fullness/possible thyroid mass with mild leftward tracheal deviation. Unremarkable bones. CONCLUSION: No significant acute chest process or interval change, as described. Thank you for the opportunity to participate in this patient's care.
[2016-06-28 13:52] LABS: Creatine Kinase MB 3.3 ng/mL (0.0-4.0)
[2016-06-28 13:53] LABS: Blood Urea Nitrogen 20 mg/dL (9-20); Calcium 9.2 mg/dL (8.4-10.2); Carbon Dioxide 24 mmol/L (22-30); Chloride 96.1 mmol/L (98-107); Creatine Kinase 79 units/L (55-170); Lipase 27 units/L (13-60); Potassium 4.6 mmol/L (3.6-5.0); Sodium 134 mmol/L (137-145)
[2016-06-28 13:54] LABS: Anion Gap 19 mmol/L
[2016-06-28 13:56] LABS: Glucose 719 mg/dL (75-100)
--- NOTE | 2016-06-30 14:14 | ED Elopement Review ---
ED Pt Elopement review - Results review Lab results: Laboratory Tests 06/28/16 06/28/16 06/28/16 12:40 13:10 13:10 WBC RBC Hgb Hct MCV MCH MCHC RDW Plt Count Lymph % (Auto) [place] % (Auto) Eos % (Auto) Baso % (Auto) Lymph # [place] # Eos # Baso # Seg Neutrophils % Seg Neutrophils # Sodium Potassium Chloride Carbon Dioxide Anion Gap BUN Creatinine Estimated GFR BUN/Creatinine Ratio Glucose POC Glucose > 500 H Calcium Total Creatine Kinase CK-MB (CK-2) CK-MB (CK-2) Rel Index Troponin T Lipase Urine Color Straw Urine Turbidity Clear Urine pH 6.0 Ur Specific [place] 1.025 Urine Protein <15 mg/dl Urine Glucose (UA) >=500 Urine Ketones Neg Urine Blood Neg Urine Nitrite Neg Urine Bilirubin Neg Urine Urobilinogen < 2.0 Ur Leukocyte Esterase Neg Urine WBC (Auto) < 1.0 Urine RBC (Auto) 2.0 U Epithel Cells (Auto) < 1.0 Urine Opiates Screen Presumptive negative Urine Methadone Screen Presumptive negative Ur Barbiturates Screen Presumptive negative Ur Phencyclidine Scrn Presumptive negative Ur Amphetamines Screen Presumptive negative U Benzodiazepines Scrn Presumptive negative Urine Cocaine Screen Presumptive negative U Marijuana (THC) Screen Presumptive negative Drugs of Abuse Note Disclamer Ketones 06/28/16 06/28/16 06/28/16 13:21 13:21 13:21 WBC 7.0 RBC 4.50 Hgb 12.6 Hct 37.4 MCV 83 L MCH 28 MCHC 34 RDW 12.8 L Plt Count 260 Lymph % (Auto) 17.0 [place] % (Auto) 8.5 H Eos % (Auto) 1.1 Baso % (Auto) 0.3 Lymph # 1.2 [place] # 0.6 Eos # 0.1 Baso # 0.0 Seg Neutrophils % 73.1 H Seg Neutrophils # 5.1 Sodium 134 L Potassium 4.6 Chloride 96.1 L Carbon Dioxide 24 Anion Gap 19 BUN 20 Creatinine 0.8 Estimated GFR > 60 BUN/Creatinine Ratio 25.00 Glucose 719 H* POC Glucose Calcium 9.2 Total Creatine Kinase 79 CK-MB (CK-2) 3.3 CK-MB (CK-2) Rel Index 4.1 H Troponin T < 0.010 Lipase 27 Urine Color Urine Turbidity Urine pH Ur Specific [place] Urine Protein Urine Glucose (UA) Urine Ketones Urine Blood Urine Nitrite Urine Bilirubin Urine Urobilinogen Ur Leukocyte Esterase Urine WBC (Auto) Urine RBC (Auto) U Epithel Cells (Auto) Urine Opiates Screen Urine Methadone Screen Ur Barbiturates Screen Ur Phencyclidine Scrn Ur Amphetamines Screen U Benzodiazepines Scrn Urine Cocaine Screen U Marijuana (THC) Screen Drugs of Abuse Note Ketones 5.7 H - Call Back decision Pt Call Back Decision: Call pt to return to ED [facility] (glucose of 719, chest pain and tachycardia should be addressed)
== END 2016-06-29 01:30 | disposition left against medical advice (07) ==
LOC: ED 12:14
DX: R07.9 Chest pain, unspecified (principal); Z53.21 Procedure and treatment not carried out due to patient leaving prior to being seen by health care provider
CPT/HCPCS: 36415; 71020; 80048; 80307; 81001; 82010; 82550; 82553; 82962; 83690; 84484; 85025; 93005; 93010